=== PATIENT | male | born 1975 | race African-American/Black ===

== ENCOUNTER 2022-12-25 09:41 | Emergency (ER) | payer MEDICAID ==
[~2022-12-25] VITALS: Ht 175.3 cm; Wt 75.0 kg
[2022-12-25 09:49] VITALS: BP 156/111; PULSE 98; RESP 18; TEMP 98; O2SAT 98
[2022-12-25] MEDS ORDERED: AMLO5TAB88 MT (10:49)
== END 2022-12-25 12:13 | disposition home or self-care (01) ==
LOC: ER 09:41
DX: I10 Essential (primary) hypertension (principal)
CPT/HCPCS: 99283